=== PATIENT | female | born 1940 | race Caucasian/White ===

== ENCOUNTER → 2017-12-17 | Outpatient (CLI) | payer MEDICARE, OTHER ==
--- NOTE | 2017-12-17 15:20 | RAD ---
DATE: 12/17/2017 EXAM: MAMMO RUSSELL SCREENING BILATERAL HISTORY: Routine screening COMPARISON: 01/17/2016 This study was interpreted with the benefit of Computerized Aided Detection (CAD). The breast parenchyma shows scattered fibroglandular densities. Breast parenchyma level B. FINDINGS: 2-D and 3-D tomosynthesis imaging was performed in CC and MLO projections. The fibroglandular tissues are heterogeneous and somewhat nodular in character. No new or enlarging breast densities are seen. No spiculated mass or architectural distortions evident. There are stable benign type calcifications. No suspicious calcifications have developed. IMPRESSION: Stable mammograms without evidence of malignancy. BI-RADS CATEGORY: 2 BENIGN FINDING(S) RECOMMENDED FOLLOW-UP: 12M 12 MONTH FOLLOW-UP PQRS compliance statement: Patient information was entered into a reminder system with a target due date for the next mammogram. Mammography is a sensitive method for finding small breast cancers, but it does not detect them all and is not a substitute for careful clinical examination. A negative mammogram does not negate a clinically suspicious finding and should not result in delay in biopsying a clinically suspicious abnormality. "Our facility is accredited by the [employer] Mammography Program."
== END | disposition home or self-care (01) ==
LOC: MAMMO 07:52
PROVIDERS: ATTEND Family Medicine
DX: Z12.31 Encounter for screening mammogram for malignant neoplasm of breast (principal); Z85.3 Personal history of malignant neoplasm of breast
CPT/HCPCS: 77063; 77067

== ENCOUNTER → 2019-11-01 | Outpatient (CLI) | payer MEDICARE, OTHER ==
--- NOTE | 2019-11-01 15:26 | RAD ---
Three-view lumbar spine radiographs 11/01/2019 CLINICAL HISTORY: Low back pain. AP and two lateral digital radiographs of the lumbar spine were obtained. There is diffuse osteopenia of the visualized bony structures. Minimal S-shaped curvature of the thoracolumbar spine is seen. Degenerative changes are seen involving the lumbar disc spaces consisting of varying degrees of disc space narrowing, vertebral endplate sclerosis and minimal to mild anterior and posterior vertebral body osteophyte formation. Degenerative changes are seen involving the facet joints throughout the mid and lower lumbar spine. No fracture or subluxation of the lumbar vertebrae is seen. Atherosclerotic calcification of the abdominal aorta and its branches is noted. 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 No acute osseous abnormality is seen. Electronically signed by: Jv Griffin MD (11/01/2019 3:22 PM) [id number]
== END | disposition home or self-care (01) ==
LOC: DXRAD 09:54
PROVIDERS: ATTEND Nurse Practitioner Gerontology
DX: M47.816 Spondylosis without myelopathy or radiculopathy, lumbar region (principal); M25.78 Osteophyte, vertebrae; M48.061 Spinal stenosis, lumbar region without neurogenic claudication; I70.0 Atherosclerosis of aorta
CPT/HCPCS: 72100